=== PATIENT | female | born 1945 | race African-American/Black ===

== ENCOUNTER → 2019-01-06 | Day surgery (SDC) | payer MEDICARE ==
[2019-01-03 11:33] LABS: BASOPHILS # (AUTO) 0.1 (0.0-0.1); EOSINOPHILS # (AUTO) 0.4 (0.0-0.4); EOSINOPHILS % 6.9 % (0.0-6.0); HEMATOCRIT 38.2 % (34.2-44.1); HEMOGLOBIN 11.8 g/dL (12.0-16.0); LYMPHOCYTES # (AUTO) 1.8 (1.0-3.2); MEAN CORPUSCULAR HEMOGLOBIN 25.6 pg (28-32); MEAN CORPUSCULAR HGB CONC 30.9 g/dL (31-35); MEAN CORPUSCULAR VOLUME 82.9 fL (81-99); MONOCYTES # (AUTO) 0.6 (0.2-0.8); MONOCYTES % 10.7 % (4.4-11.3); NEUTROPHILS % 50.2 % (38.7-80.0); PLATELET COUNT 217 x10e3/uL (140-360); RED BLOOD COUNT 4.61 x10e6/uL (3.6-5.1); RED CELL DISTRIBUTION WIDTH 14.9 % (11.7-14.4)
[2019-01-03 11:57] LABS: ALBUMIN 3.5 g/dL (3.5-5.0); ALBUMIN/GLOBULIN RATIO 0.8 (0.8-2.0); ANION GAP 12.4 mmol/L (8-16); CALCIUM 9.8 mg/dL (8.4-10.2); CREATININE, SERUM 1.4 mg/dL (0.57-1.11); POTASSIUM 4.4 mmol/L (3.5-5.1)
--- NOTE | 2019-01-03 12:20 | Diagnostic Imaging Report ---
EXAMINATION: CHEST 2 VIEWS INDICATION: Pre-op left heart catheterization. COMPARISON: None FINDINGS: TUBES and LINES: None. LUNGS: Lungs are moderately inflated. There is no evidence of pneumonia or pulmonary edema. PLEURA: No pleural effusion or pneumothorax. HEART AND MEDIASTINUM: The cardiomediastinal silhouette is unremarkable. There are atherosclerotic calcifications within the aorta. BONES AND SOFT TISSUES: No acute osseous abnormality. 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 UPPER ABDOMEN: No free air under the diaphragm. IMPRESSION: No acute radiographic abnormality. Signed by: Dr. Shelly Lopez MD on 01/03/2019 12:17 PM
[~2019-01-06] VITALS: Ht 165.1 cm; Wt 78.5 kg
[2019-01-06] VITALS (10 sets, daily range): BP systolic 112–175; BP diastolic 47–77
[~2019-01-06] MED LIST: AMLODIPINE BESY10 MG PO; ATORVASTATIN CA10 MG PO; EZETIMIBE 10 MG PO; FENTANYL CITRATE/PF 100MCG/2 ML INJ ONE; HEPARIN SOD/SOD CHLORIDE 2,000 ML ONE; HYDRALAZINE HCL25 MG PO; HYDROCHLOROTHIA25 MG PO; IOPAMIDOL 370 MG/ML 200 ML INFUS..BTL INJ ONE; LIDOCAINE HCL 2% LOCAL 20 ML VIAL ONE; LOSARTAN POTAS100 MG PO; METOPROLOL ER PO; METOPROLOL TARTRATE INJ 1 MG/ML VIAL ONE; MIDAZOLAM HCL 2 MG/2 ML VIAL ONE; NITROGLYCERIN 400 MCG/SPRAY 4.9 GM BTL ONE; SODIUM CHLORIDE 0.9% 1000ML 1,000 ML ONE
--- OUTSIDE RECORDS SUMMARY | 2019-01-06 08:17 | XMS REPORT | Summary of Care ---
Author Organization Unknown Address Unknown Phone Unavailable Encounter HQ Encntr_alias(FIN) [id number] Date(s): 04/09/14 - 04/09/14 [facility] Outpatient Imaging [address] Discharge Disposition: Home Physician Attending: Jonas Guillaume MD Reason for Visit 723.4 - BRACHIAL NEURIT Problem List Condition Effective Dates Status Health Status Informant Back pain(Confirmed) Active Hypertension(Confirm Active ed) Right arm Active cyst(Confirmed) Stroke(Confirmed) Active Allergies, Adverse Reactions, Alerts Substance Reaction Severity Status NKDA Active Medications No data available for this section Medications Administered During Your Visit No data available for this section Immunizations No data available for this section
--- OUTSIDE RECORDS SUMMARY | 2019-01-06 08:17 | XMS REPORT | Summary of Care ---
Author Organization Unknown Address Unknown Phone Unavailable Encounter HQ Encntr_alias(FIN) [id number] Date(s): 07/23/14 - 07/23/14 [facility] Outpatient Imaging [address] Discharge Disposition: Home Physician Attending: Jonas Guillaume MD Reason for Visit 796.4 - ABN CLINICAL FI Problem List Condition Effective Dates Status Health Status Informant Back pain(Confirmed) Active Hypertension(Confirm Active ed) Right arm Active cyst(Confirmed) Stroke(Confirmed) Active Allergies, Adverse Reactions, Alerts Substance Reaction Severity Status NKDA Active Medications No data available for this section Medications Administered During Your Visit No data available for this section Immunizations No data available for this section
--- OUTSIDE RECORDS SUMMARY | 2019-01-06 08:17 | XMS REPORT | Continuity of Care Document ---
Author Author [facility] Interface Address Unknown Phone Unavailable Problems Problem Status Onset Date Classification Date Reported Comments Source J44.9 Active 01/02/2019 [facility] [id number] (PRIMARY) HYPERTENSION, J4 Active 12/22/2018 [facility] BREAST PAIN Active 10/09/2016 [facility] M85.80 - OTH DISRD OF BONE DENSITY AND Active 11/18/2015 [facility] UNK Active 12/05/2012 [facility] 782.2 Active 12/05/2012 [facility] 729.99 - SOFT TISSUE DIS Active 09/26/2012 [facility] [place] Final: Other Screening Mammogram 03/30/2015 [facility] Right arm cyst Active Problem 07/25/2014 [facility] Back pain Active Problem 01/04/2019 [facility] Hypertension Active Problem 01/04/2019 [facility] Stroke Active Problem 01/04/2019 [facility] MASTODYNIA Active [facility] CHRONIC OBSTRUCTIVE PULMONARY DISEASE, U Active [facility] ABNORMAL ELECTROCARDIOGRAM [ECG] [EKG] Active [facility] ESSENTIAL (PRIMARY) HYPERTENSION Active [facility] Medications Medication Details Route Status Patient Instructions Ordering Provider Order Date Source Allergies, Adverse Reactions, Alerts Substance Category Reaction Severity Reaction type Status Date Reported Comments Source penicillins Assertion Drug allergy Active [facility] Immunizations Immunization Date Given Site Status Last Updated Comments Source Results Order Name Results Value Reference Range Date Interpretation Comments Source Chest 2 views DX Chest 2 views DX Chest 2 views DX 01/02/2019 9:41 CDT Ordering Physician: MELISSA Wilson CLINICAL HISTORY: - J44.9 Chronic obstructive pulmonary disease, unspecified; TECHNIQUE: PA and lateral upright views of the chest were obtained. COMPARISON: October 2016 FINDINGS: Lungs are clear. No pleural effusion or pneumothorax is present. Cardiomediastinal silhouette there is tracer normal heart size, but with aortic arch calcified plaque and a mildly tortuous thoracic aorta. Bones are normal. Bones demonstrate mild mid thoracic spine kyphosis with chronic minimal anterior compression wedge deformity of the midthoracic vertebral body. IMPRESSION: No acute abnormality of the chest. SL: [id number] 01/02/2019 - - Read by: Sia Cary MD Dictated Date/time: 01/02/19 11:33 Electronically Signed by: Sia Cary MD 01/02/19 11:35 FINAL REPORT [facility] Cardiac SPECT multi studies [place] Cardiac SPECT multi studies [place] [id number] nuclear gated myocardial perfusion scan performed as per protocol at nuclear medicine lab at [facility]. Lexiscan injected 0.4 mg intravenously. Cardiolite injected 28.3 mCi for resting protocol and 10's millicuries for stress protocol. Impression. Abnormal study. Inferior and lateral ischemia noted. Inferior and lateral hypokinesia noted. Left ventricular ejection fraction is 55%. 12/26/2018 - - Read by: Dean Ye MD Dictated Date/time: 12/29/18 11:30 Electronically Signed by: Dean Ye MD 12/29/18 11:34 FINAL REPORT [facility] Breast Mammo Scrn LENNY w mundo incl CAD DE Breast Mammo Scrn LENNY w mundo incl CAD MA BILATERAL DIGITAL SCREENING MAMMOGRAM 3D/2D WITH CAD: 01/24/2018 CLINICAL: /Routine. Current study was evaluated with a Computer Aided Detection (CAD) system. COMPARISON:Comparison is made to exams dated: 11/27/2016 mammogram, 03/27/2015 mammogram, 04/23/2014 mammogram, 12/13/2012 mammogram, and 03/31/2011 mammogram - [facility]. TECHNIQUE: Digital Breast Tomosynthesis was performed and utilized for Interpretation. Current study was also evaluated with a Computer Aided Detection (CAD) system. FINDINGS: There are scattered fibroglandular densities in both breasts. There are benign scattered calcifications in the left breast. No significant masses, calcifications, or other findings are seen in either breast. There has been no significant interval change. IMPRESSION: BENIGN RECOMMENDATION:There is no mammographic evidence of malignancy. A 1 year screening mammogram is recommended.(01/25/2019) This exam was interpreted at [id number] for Yann 15. Professional services are provided by the [facility]. Gloria Sifuentes M.D., ms/penpauline:01/24/2018 10:12:57 Backfiller(s): Kait Finch [facility] [place] letter sent: BI-RADS 1/2 Mammogram BI-RADS: 2 Benign 01/24/2018 - - Read by: Gloria Sifuentes MD Dictated Date/time: 01/24/18 10:12 Electronically Signed by: Gloria Sifuentes MD 01/24/18 10:12 FINAL REPORT [facility] Bone Density DXA [employer] MA Bone Density DXA [employer] MA BONE DENSITY ASSESSMENT: 01/24/2018 CLINICAL DATA: Post menopausal and clinical risk for osteoporosis. Z78.0 asymptomatic postmenopausal state. /Z78.0 Asymptomatic Menopausal State FINDINGS: Bone density evaluation was performed 01/24/2018 on the right femur neck using a Hologic unit. The BMD average for the exam is 0.700 g/cm2. The T-score is - 1.30 and the Z-score is -0.20. This matches the World Health Organization's criteria for osteopenia and places the patient at a medium risk for fracture. An additional bone density evaluation was performed 01/24/2018 on the left femur neck using a Hologic unit. The BMD average for the exam is 0.663 g/cm2. The T- score is -1.70 and the Z-score is -0.50. This matches the World Health Organization's criteria for osteopenia and places the patient at a medium risk for fracture. An additional bone density evaluation was performed 01/24/2018 on the right total femur area using a Hologic unit. The BMD average for the exam is 0.656 g/cm2. The T-score is -2.30 and the Z-score is -1.10. This matches the World Health Organization's criteria for osteopenia and places the patient at a medium risk for fracture. An additional bone density evaluation was performed 01/24/2018 on the left total femur area using a Hologic unit. The BMD average for the exam is 0.685 g/cm2. The T-score is -2.10 and the Z-score is -1.00. This matches the World Health Organization's criteria for osteopenia and places the patient at a medium risk for fracture. An additional bone density evaluation was performed 01/24/2018 on the AP L1-L4 region of spine using a Hologic unit. The BMD average for the exam is 0.864 g/cm2. The T-score is -1.70. This matches the World Health Organization's criteria for osteopenia and places the patient at a medium risk for fracture. FRAX 10 year probability of major osteoporotic fracture is 5% and hip fracture is 1%. IMPRESSION: OSTEOPENIA Patient is at medium risk for fracture. Patient consult w/primary care provider is recommended. This exam was interpreted at [id number] for KRYSTAL Doe. Gloria Sifuentes M.D. ms/penrad:01/24/2018 15:09:00 Backfiller(s): Kait Finch [facility] 01/24/2018 - - Read by: Gloria Sifuentes MD Dictated Date/time: 01/24/18 15:09 Electronically Signed by: Gloria Sifuentes MD 01/24/18 15:09 FINAL REPORT [facility] Breast Mammo Scrn LENNY incl CAD MA Breast Mammo Scrn LENNY incl CAD MA - BREAST MAMMO SCRN LENNY INCL CAD MA BILATERAL DIGITAL SCREENING MAMMOGRAM WITH CAD: 11/27/2016 CLINICAL: Routine. Current study was evaluated with a Computer Aided Detection (CAD) system. Comparison is made to exams dated: 03/27/2015 mammogram, 04/23/2014 mammogram, 12/13/2012 mammogram and 03/31/2011 mammogram - [facility]. There are scattered fibroglandular densities in both breasts. There are benign scattered calcifications in the left breast. No significant masses, calcifications, or other findings are seen in either breast. There has been no significant interval change. IMPRESSION: BENIGN There is no mammographic evidence of malignancy. A 1 year screening mammogram is recommended. Professional services are provided by the [facility]. Oleg Alston M.D. cm/penrad:11/27/2016 10:08:44 Backfiller: Marybel Solomon [facility] This exam was dictated and interpreted by [id number] for KRYSTAL Doe. letter sent: Normal exam Mammogram BI-RADS: 2 Benign 11/27/2016 - - Read by: Gurpreet Camilo MD Dictated Date/time: 11/27/16 10:08 Electronically Signed by: Gurpreet Camilo MD 11/27/16 10:08 [facility] [place] Chest 2 views DX Chest 2 views DX Patient Name: MAGNO DOHERTY : 1945; Age: 71 years y/o Female MR: [id number] * CHEST, 2 views HISTORY: breast pain (left), COMPARISON: None TECHNIQUE: Frontal and lateral radiographs of the chest were obtained. FINDINGS: The lungs are clear. There are no pleural effusions. Arch size is at the upper limits of normal. There is no evidence of failure. 2 mild degenerative changes in the thoracic spine. It is noted there is an anterior bowing deformity involving the sternum. The regional skeleton is otherwise unremarkable. IMPRESSION: 1. No active disease. SL: [id number] 10/09/2016 - - Read by: Mt Montgomery MD Dictated Date/time: 10/09/16 15:21 Electronically Signed by: Mt Montgomery MD 10/09/16 15:23 FINAL REPORT [facility] Digital Mammo Screening Lenny MA Digital Mammo Screening Lenny MA - DIGITAL MAMMO SCREENING LENNY MA BILATERAL DIGITAL SCREENING MAMMOGRAM WITH CAD: 03/27/2015 CLINICAL: Routine. Current study was evaluated with a Computer Aided Detection (CAD) system. Comparison is made to exams dated: 04/23/2014 mammogram, 12/13/2012 mammogram, 03/31/2011 mammogram - [facility] and 07/12/2007 mammogram - [facility] Mammography. There are scattered fibroglandular densities in both breasts. There are benign vascular calcifications and a calcification in both breasts. No significant masses, calcifications, or other findings are seen in either breast. There has been no significant interval change. IMPRESSION: BENIGN There is no mammographic evidence of malignancy. A 1 year screening mammogram is recommended. Di holder/penrad:03/27/2015 09:09:19 Backfiller: Bernarda MCGUIRE(R)(M), [facility] This exam was dictated and interpreted by [id number] for [facility]. letter sent: Normal exam Mammogram BI-RADS: 2 Benign 03/27/2015 - - Read by: Di Owen MD Dictated Date/time: 03/27/15 09:09 Electronically Signed by: iD Owen MD 03/27/15 09:09 FINAL REPORT [facility] [place] Thyroid US Thyroid US REASON FOR EXAM: Thyroid lesions. COMPARISON: Cervical spine MRI 07/09/2014. FINDINGS: Ultrasound of the thyroid gland was performed. Static images are submitted. There is no demonstrable parathyroid adenoma. There are nodules in the right thyroid lobe: 1.5 x 2.2 x 1.4 cm superiorly; 1.2 x 0.78 x 0.94 cm in the mid to superior right thyroid lobe; 1.2 x 1.8 x 1.2 cm with cystic changes in the mid right thyroid lobe; 1 x 1.5 x 1.2 cm with cystic changes in the mid to inferior right thyroid lobe; 1 x 0.96 x 1.1 cm in the mid to inferior right thyroid lobe. The right thyroid lobe measures 5.6 x 2.1 x 2.1 cm (length x AP x width). There is a 0.74 x 0.61 x 0.59 cm nodule with cystic changes in the thyroid isthmus. The maximal AP dimension of the thyroid isthmus is 1.4 cm. There are adjacent nodules versus a solitary nodule in the mid to inferior left thyroid lobe with maximal dimensions of 3.2 x 1.2 x 2.7 cm. The left thyroid lobe measures 5.2 x 2.2 x 2.3 cm (length x AP x width). IMPRESSION: Multinodular thyroid gland. SL: 15 07/23/2014 - - Read by: James Bosch MD Dictated Date/time: 07/23/14 10:02 Electronically Signed by: James Bosch MD 07/23/14 10:14 FINAL REPORT [facility] Spine cervical wo contrast MRI Spine cervical wo contrast MRI REASON FOR EXAM: 723.1 Cervicalgia. COMPARISON: Cervical spine series 04/09/2014. TECHNIQUE: Unenhanced axial and sagittal MR images of the cervical spine were performed. FINDINGS: There is mild patient motion. There is slight curvature of the cervical spine convex to the left. There is approximately 2 mm anterolisthesis of C7 on T1. There are anterior marginal osteophytes from C3 through C6. Marrow edema in the right facets at C3-C4 is likely secondary to facet arthropathy. There is mild Modic type I degenerative changes of the vertebral endplates at C3-C4. There is disc desiccation at all levels of the cervical spine. There is anterior disc bulging from C3-C4 through T1-T2. There are thyroid lesions the largest measuring approximately 2.3 cm in the right thyroid lobe, incompletely assessed on this examination. The cervical spinal cord demonstrates normal signal intensity without a demonstrable lesion or syrinx. Craniocervical junction: No significant abnormality. C2-C3: Posterior central and bilateral paracentral disc bulge/protrusion measuring a maximal AP dimension of approximately 2 mm. Facet arthropathy. No significant foraminal narrowing or spinal stenosis. C3-C4: Posterior disc space narrowing. Broad-based posterior disc bulge/protrusion measuring a maximal AP dimension of approximately 3 mm. Uncal vertebral joint hypertrophy. Facet arthropathy. Severe right foraminal narrowing. Moderate to severe left foraminal narrowing. Moderate spinal stenosis. C4-C5: Posterior disc space narrowing. Left posterior paracentral disc bulging measuring a maximal AP dimension of approximately 1 to 2 mm. Uncal vertebral joint hypertrophy. Facet arthropathy. Moderate right foraminal narrowing. Severe left foraminal narrowing. Mild spinal stenosis. C5-C6: Posterior disc space narrowing. Broad-based posterior disc bulge/protrusion more pronounced on the left measuring a maximal AP dimension of approximately 2 to 3 mm. Uncal vertebral joint hypertrophy. Facet arthropathy. Mild right foraminal narrowing. Mild to moderate left foraminal narrowing most pronounced medially. Mild spinal stenosis. C6-C7: Posterior disc space narrowing. Broad-based posterior disc bulge/protrusion measuring a maximal AP dimension of approximately 3 mm. Uncal vertebral joint hypertrophy. Facet arthropathy. Mild to moderate right foraminal narrowing most pronounced medially. Severe left foraminal narrowing. Mild spinal stenosis. C7-T1: Broad-based posterior disc bulge/protrusion measuring a maximal AP dimension of approximately 2 to 3 mm. Facet arthropathy. Mild bilateral foraminal narrowing. No significant spinal stenosis. IMPRESSION: 1. Slight curvature of the cervical spine convex to the left. 2. Grade 1 anterolisthesis of C7 on T1. 3. [place] disc desiccation and facet arthropathy. 4. Spondylosis of the cervical spine with multilevel posterior disc space narrowing, posterior disc bulging/protrusions, foraminal narrowing and spinal stenosis as described above. 5. Thyroid lesions. Further evaluation may be obtained with a thyroid ultrasound. SL: 15 07/09/2014 - - Read by: James Bosch MD Dictated Date/time: 07/10/14 07:49 Electronically Signed by: James Bosch MD 07/10/14 08:28 [facility] [place] Digital Mammo Screen Lenny MA w mundo Digital Mammo Screen Lenny MA w mundo - DIGITAL MAMMO SCREEN LENNY MA W MUNDO BILATERAL DIGITAL SCREENING MAMMOGRAM 3D/2D WITH CAD: 04/23/2014 CLINICAL: Screening. 2D digital mammographic images and 3D digital tomosynthesis images were obtained in the CC and MLO projections. Current study was evaluated with a Computer Aided Detection (CAD) system. Comparison is made to exams dated: 12/13/2012 mammogram, 03/31/2011 mammogram - [facility] and 07/12/2007 mammogram - [facility]. There are scattered fibroglandular densities in both breasts. Technologist indicates the exam is limited secondary to the patient's body habitus. Optimal positioning was not allowed. Best images obtained were submitted. There are benign vascular calcifications in both breasts. No significant masses, calcifications, or other findings are seen in either breast. There has been no significant interval change. IMPRESSION: BENIGN There is no mammographic evidence of malignancy. A screening mammogram in one year is recommended. Di holder/penrad:04/23/2014 08:32:11 Backfiller: Bernarda GATICA)(Paola), [facility] This exam was dictated and interpreted by [id number] for [facility]. letter sent: Normal exam Mammogram BI-RADS: 2 Benign 04/23/2014 - - Read by: Di Owen MD Dictated Date/time: 04/23/14 08:32 Electronically Signed by: Di Owen MD 04/23/14 08:32 [facility] [place] Spine cervical minimum of 4 views Spine cervical minimum of 4 views Examination: Cervical spine, 6 views History: CERVICAL RADICULOPATHY Comparison: None. Findings: Multiple views of the cervical spine show visualization through the C7 vertebral body on the lateral swimmer's view. No acute vertebral body height loss or subluxation is seen. Mild multilevel degenerative disc disease of the cervical spine is seen with mild disc height loss and prominent anterior marginal osteophytes. Mild to moderate facet arthrosis throughout the cervical spine is seen. There is moderate left neuroforaminal narrowing at C3-C4 and C5- C6. Mild to moderate right neuroforaminal narrowing at C3-C4 is seen. The odontoid process is intact. The prevertebral soft tissues are unremarkable. IMPRESSION: Mild to moderate multilevel degenerative changes of the cervical spine. SL: 12 04/09/2014 - - Read by: Jamie Baez MD Dictated Date/time: 04/09/14 10:07 Electronically Signed by: Jamie Baez MD 04/09/14 10:08 FINAL REPORT [facility] Vital Signs Vital Sign Value Date Comments Source BMI Calculated 28.35 12/26/2018 [facility] Weight 77.273 12/26/2018 [facility] Height 165.1 cm 12/26/2018 [facility] Encounters Location Location Details Encounter Type Encounter Number Reason For Visit Attending Provider ADM Date DC Date Status Source OD [id number] 729.99 - SOFT TISSUE DIS [facility] 10/04/2012 Active [facility] [place] [facility] [id number] [facility] 04/09/2014 04/10/2014 [facility] [place] [facility] [id number] [facility] 04/23/2014 04/24/2014 [facility] [place] [facility] [id number] [facility] 07/09/2014 07/10/2014 [facility] [place] [facility] [id number] [facility] 07/23/2014 07/24/2014 [facility] [place] [facility] [id number] [facility] 03/27/2015 03/28/[address] [facility] Outpatient [id number] [facility] 10/09/2016 10/10/2016 [facility] Outpatient [facility] [place] [facility] [id number] [facility] 11/27/2016 11/28/2016 [facility] [place] [facility] [id number] Raymundo Medina 01/24/2018 01/25/[address] [facility] Outpatient [id number] Dean Ye 12/26/2018 12/27/2018 [facility] Outpatient [id number] Raza Cha 01/02/2019 01/03/2019 [facility] DS [id number] 782.2 CALDERON BRIGGS Active [facility] Procedures Procedure Code Date Perfomer Comments Source Endarterectomy [id number] [facility] Operation [id number] [facility] Partial hysterectomy [id number] [facility] Endarterectomy [id number] [facility] Operation [id number] [facility] Partial hysterectomy [id number] [facility]
--- OUTSIDE RECORDS SUMMARY | 2019-01-06 08:17 | XMS REPORT | Summary of Care ---
Author Author [facility] Organization [facility] Address Unknown Phone Unavailable Encounter HQ Ladarius_naeem(FIN) [id number] Date(s): 12/26/18 - 12/26/18 [facility] [address] [place] [address]- Discharge Disposition: Home or Self Care Attending Physician: Dean Ye MD Referring Physician: Dean Ye MD Vital Signs Most recent to 1 oldest [Reference Range]: Height 165.1 cm (12/26/18 10:21 AM) Weight 77.273 kg (12/26/18 10:21 AM) Body Mass Index 28.35 m2 (12/26/18 10:21 AM) Problem List Condition Effective Dates Status Health Status Informant Back pain(Confirmed) Active Hypertension(Confirm Active ed) Stroke(Confirmed) Active Allergies, Adverse Reactions, Alerts Substance Reaction Severity Status penicillins Active Medications No data available for this section Results No data available for this section Immunizations No data available for this section Procedures Procedure Date Related Diagnosis Body Site Status Endarterectomy Completed Operation Completed Partial hysterectomy Completed Social History No data available for this section Assessment and Plan No data available for this section
--- OUTSIDE RECORDS SUMMARY | 2019-01-06 08:17 | XMS REPORT | Summary of Care ---
Author Organization Unknown Address Unknown Phone Unavailable Encounter HQ Encntr_alias(FIN) [id number] Date(s): 07/09/14 - 07/09/14 [facility] Outpatient Imaging [address] Discharge Disposition: Home Physician Attending: Jonas Guillaume MD Reason for Visit 723.1 - CERVICALGIA Problem List Condition Effective Dates Status Health Status Informant Back pain(Confirmed) Active Hypertension(Confirm Active ed) Right arm Active cyst(Confirmed) Stroke(Confirmed) Active Allergies, Adverse Reactions, Alerts Substance Reaction Severity Status NKDA Active Medications No data available for this section Medications Administered During Your Visit No data available for this section Immunizations No data available for this section
--- OUTSIDE RECORDS SUMMARY | 2019-01-06 08:17 | XMS REPORT | Summary of Care ---
Author Author [facility] Organization [facility] Address Unknown Phone Unavailable Encounter HQ Encntr_alias(FIN) [id number] Date(s): 10/09/16 - 10/09/16 [facility] [address] [place] [address]- Discharge Disposition: Home or Self Care Attending Physician: Jnoas Guillaume MD Admitting Physician: Jonas Guillaume MD Vital Signs No data available for this section Problem List Condition Effective Dates Status Health Status Informant Back pain(Confirmed) Active Hypertension(Confirm Active ed) Stroke(Confirmed) Active Allergies, Adverse Reactions, Alerts Substance Reaction Severity Status NKDA Active Medications No data available for this section Results No data available for this section Immunizations No data available for this section Procedures Procedure Date Related Diagnosis Body Site Endarterectomy Operation Partial hysterectomy Social History No data available for this section Assessment and Plan No data available for this section
--- OUTSIDE RECORDS SUMMARY | 2019-01-06 08:17 | XMS REPORT | Summary of Care ---
Author Author [facility] Outpatient Imaging [facility] Outpatient Imaging [place] Address Unknown Phone Unavailable Encounter HQ Encntr_alias(FIN) [id number] Date(s): 01/24/18 - 01/24/18 [facility] Outpatient Imaging [place] [address] [address], [address] [place] [address]- [phone] Discharge Disposition: Home or Self Care Attending Physician: Raymundo Medina MD Vital Signs No data available for [...]
--- OUTSIDE RECORDS SUMMARY | 2019-01-06 08:17 | XMS REPORT | Summary of Care ---
Author Author [facility] Outpatient Imaging [facility] Outpatient Imaging [place] Address Unknown Phone Unavailable Encounter HQ Encntr_alias(FIN) [id number] Date(s): 11/27/16 - 11/27/16 [facility] Outpatient Imaging [place] [address] [facility], [address] [place] [address]- [phone] Discharge Disposition: Home or Self Care Attending Physician: Jonas Guillaume MD Vital Signs No [...]
--- OUTSIDE RECORDS SUMMARY | 2019-01-06 08:17 | XMS REPORT | Summary of Care ---
Author Organization Unknown Address Unknown Phone Unavailable Encounter HQ Encntr_alias(FIN) [id number] Date(s): 04/23/14 - 04/23/14 [facility] Outpatient Imaging [address] Discharge Disposition: Home Physician Attending: Jonas Guillaume MD Reason for Visit V76.12 - SCREEN MAMMOGRA Problem List Condition Effective Dates Status Health Status Informant Back pain(Confirmed) Active Hypertension(Confirm Active ed) Right arm Active cyst(Confirmed) Stroke(Confirmed) Active Allergies, Adverse Reactions, Alerts Substance Reaction Severity Status NKDA Active Medications No data available for this section Medications Administered During Your Visit No data available for this section Immunizations No data available for this section
--- OUTSIDE RECORDS SUMMARY | 2019-01-06 08:17 | XMS REPORT | Summary of Care ---
Author Author [facility] Outpatient Imaging [facility] Outpatient Imaging [place] Address Unknown Phone Unavailable Encounter HQ Encntr_alias(FIN) [id number] Date(s): 03/27/15 - 03/27/15 [facility] Outpatient Imaging [place] [id number] [place], [place] [address] [phone] Final: Other Screening Mammogram Discharge Disposition: Home Attending Physician: Jonas Guillaume MD Vital Signs [...]
--- OUTSIDE RECORDS SUMMARY | 2019-01-06 08:17 | XMS REPORT | Summary of Care ---
Author Author [facility] Organization [facility] Address Unknown Phone Unavailable Encounter HQ Encntr_alias(FIN) [id number] Date(s): 01/02/19 - 01/02/19 [facility] [address] [place] [address]- [phone] Discharge Disposition: Home or Self Care Attending Physician: Raza Cha Admitting Physician: Raza Cha Vital Signs No data available for this [...]
--- OUTSIDE RECORDS SUMMARY | 2019-01-06 08:18 | XMS REPORT | Encounter Summary ---
Author Organization Unknown Address [address] [place] [address] Phone [phone] Care Team Providers Care Grounding Engineer Name Role Phone Dr. Terry Titus 3 [phone] Terry Titus Jr, MD 3 [phone] Papo Smith MD 130 [phone] Reason for Visit hyperlipidemia; hypertension Instructions 1. Benign hypertensive renal disease amlodipine 10 mg tablet hydralazine 25 mg tablet hydrochlorothiazide 25 mg tablet losartan 100 mg tablet urinalysis, dipstick CMP, serum or plasma TSH, serum or plasma CBC w/ auto diff 2. Chronic kidney disease stage 3 3. Hyperlipidemia atorvastatin 20 mg tablet lipid panel, serum 4. Impaired fasting glycaemia HbA1c (hemoglobin A1c), blood 5. Screening for malignant neoplasm of colon fecal occult blood, stool 6. Screening for malignant neoplasm of breast MAMMO, screening, digital, bilateral - PLEASE FAX RESULTS TO [phone]. 7. Postmenopausal state bone density referral - PLEASE FAX RESULTS TO [phone]. 8. Blood in urine culture, urine Discussion Note If you do not hear from us in 1 week after the labs are done ,pl call us for results f/u in 1 month with bp reading Patient educational handouts: No information available. Plan of Care Reminders Provider Appointments Est Patient 02/02/2019 9:00AM Raymundo Medina MD Lab Urinalysis, Dipstick 11/03/2018 [facility] [place] CMP, Serum or Plasma 11/03/2018 [facility] TSH, Serum or Plasma 11/03/2018 [facility] Lipid Panel, Serum 11/03/2018 [facility] HbA1C (Hemoglobin a1C), Blood 11/03/2018 [facility] Fecal Occult Blood, Stool 11/03/2018 [facility] CBC W/ Auto Diff 11/03/2018 [facility] Culture, Urine 11/03/2018 [facility] Referral Bone Density Referral 11/03/2018 [facility] Imaging - [facility] Procedures None recorded. Surgeries None recorded. Imaging MAMMO, Screening, Digital, Bilateral 11/03/2018 [facility] Outpatient Imaging [place] Medications Name Start Date amlodipine 10 mg tablet Take 1 tablet every day by oral route for 90 days. atorvastatin 20 mg tablet Take 1 tablet every day by oral route for 90 days. FOR CHOLESTEROL fluticasone 50 mcg/actuation nasal spray,suspension [place] 2 sprays every day by intranasal route for 90 days. hydralazine 25 mg tablet Take 1 tablet 3 times a day by oral route for 90 days. hydrochlorothiazide 25 mg tablet Take 1 tablet every day by oral route for 90 days. losartan 100 mg tablet Take 1 tablet every day by oral route for 90 days. Vitamin D3 1,000 unit capsule Take 1 capsule every day by oral route. Medications Administered None recorded. Vitals Height Weight BMI Blood Pressure 5 ft 5 in 176 lbs 29.3 kg/m2 (1) 152/90 mm[Hg] (2) 165/80 mm[Hg] Lab Results None recorded. Allergies Code Code System Name Reaction Severity Status Onset 1191 RxNorm Aspirin Other Moderate Active 08129 RxNorm Lisinopril Active Penicillins Active 94892 RxNorm Pravastatin Active Sulfa (Sulfonamide Antibiotics) Active NKDA Problems Name Status Onset Date Source Hyperlipidemia Active 07/19/2017 Benign Hypertensive Renal Disease Active 07/19/2017 Chronic Kidney Disease Stage 3 Active 07/19/2017 Tenosynovitis of Wrist Active 12/01/2017 Vitamin D Deficiency Active 04/14/2018 History of Cerebrovascular Accident Active 04/14/2018 Procedures Date Name Performed by Partial Hysterectomy Information not available Knee Arthroscopy/surgery Information not available Low Back Disk Surgery Information not available Cholecystectomy (Gall Bladder Removal) Information not available 11/03/2018 MAMMO, Screening, Digital, Bilateral [facility] Outpatient Imaging [place] [address] [facility] [address] [place] [address] (Work Place) Vaccine List Vaccine Type influenza, high dose seasonal 07/19/20170.5 mL 05/30/20180.5 mL influenza, injectable, quadrivalent 05/29/2016 pneumococcal conjugate PCV 13 12/01/20170.5 mL Social History Smoking Status Never Smoker Past Encounters 11/03/2018 Benign Hypertensive Renal Disease; Chronic Kidney Disease Stage 3; Hyperlipidemia; Impaired Fasting Glycaemia; Screening for Malignant Neoplasm of Colon; Screening for Malignant Neoplasm of Breast; Postmenopausal State; Blood in Urine Raymundo Medina MD: [id number] [facility], [address], [place] [address], Ph. History of Present Illness Hypertension Reported By: Patient Notes: No chest pain , no shortness of breath, no palpitations ,no dizziness , no diaphoresis , no weakness or numbness in arms or legs , no visual loss . Hyperlipidemia Reported By: Patient Notes: No chest pain , no shortness of breath, no palpitations ,no dizziness , no diaphoresis , no weakness or numbness in arms or legs , no visual loss . no muscle ache s, no muscle weakness Note:Here for 3 mth check up , NEEDS refills , No chest pain , no shortness of breath, no palpitations ,no dizziness , no diaphoresis , no weakness or numbness in arms or legs , no visual loss .Last mamogram - 2018 - n/ pt . 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 Review of Systems:ROS as noted in the HPI Review of Systems None recorded. Physical Exam General Adult Exam (Female) Reported By: Patient Constitutional: General Appearance: well-developed; BMI - 29.3 ( 8 lb wt gain in 3.5 mths). Level of Distress: NAD. Ambulation: ambulating normally Psychiatric: Insight: good judgement. Mental Status: active and alert, normal mood, normal affect. Orientation: to time, to place, to person Head: Head: normocephalic, atraumatic Eyes: Lids and Conjunctivae: non-injected, no discharge, no pallor. Pupils: PERRLA. Corneas: grossly intact. EOM: EOMI. Lens: clear. Sclerae: non-icteric ENMT: Ears: no lesions on external ear, EACs clear, TMs clear. Hearing: no hearing loss. Nose: no lesions on external nose, nares patent, no septal deviation, nasal passages clear, no sinus tenderness, no nasal discharge. Lips, Teeth, and Gums: no mouth or lip ulcers, no bleeding gums, normal dentition. Oropharynx: moist mucous membranes, no erythema, no exudates, tonsils not enlarged Neck: Neck: supple, trachea midline, no masses, FROM. Lymph Nodes: no cervical LAD, no supraclavicular LAD, no axillary LAD. Thyroid: no enlargement, non- tender, no nodules Lungs: Respiratory effort: no dyspnea. Auscultation: breath sounds normal, good air movement, CTA except as noted, no wheezing, no rales/crackles, no rhonchi Cardiovascular: Heart Auscultation: RRR, normal S1, normal S2, no murmurs, no rubs, no gallops Abdomen: Bowel Sounds: normal. Inspection and Palpation: soft, non-distended, no tenderness, no guarding, no rebound tenderness, no masses, no CVA tenderness. Liver: non-tender, no hepatomegaly Musculoskeletal:: Motor Strength and Tone: normal motor strength, normal tone; PEGION CHESTED. Joints, Bones, and Muscles: normal movement of all extremities, no bony abnormalities, no contractures, no malalignment, no tenderness. Extremities: no cyanosis, no varicosities, edema Neurologic: Gait and Station: normal gait, normal station. Cranial Nerves: grossly intact. Sensation: grossly intact Skin: Inspection and palpation: no rash, no lesions, no abnormal nevi, good turgor, no jaundice. Nails: normal Back: Thoracolumbar Appearance: normal curvature
--- OUTSIDE RECORDS SUMMARY | 2019-01-06 08:18 | XMS REPORT ---
Author Author [facility] Address Unknown Phone Unavailable Care Team Providers Care Pressing Department Supervisor Name Role Phone DYAN JEROME Unavailable Unavailable Problems This patient has no known problems. Allergies, Adverse Reactions, Alerts This patient has no known allergies or adverse reactions. Medications This patient has no known medications. Encounters Start Date/Time End Date/Time Encounter Type Admission Type Attending Clinicians Care Facility Care Department Encounter ID 2019-01-02 09:28:00 2019-01-02 09:28:00 Outpatient [facility] [id number] 2018-12-26 09:26:00 2018-12-26 09:26:00 Outpatient [facility] [id number] Results Test Description Test Time Test Comments Text Results Atomic Results Result Comments CHEST 2 VIEWS 2019-01-03 12:14:00 [place] [id number] Patient Name: MAGNO DOHERTY MR #: [id number] : 1945 Age/Sex: 73/F Req #: [id number] Adm Physician: Ordered by: DYAN JEROME MD Report #: [id number] Location: [facility] Room/Bed: Procedure: [id number] DX/CHEST 2 VIEWS Exam Date: 01/03/19 Exam Time: 1130 REPORT STATUS: Signed EXAMINATION: CHEST 2 VIEWS INDICATION: Pre-op left heart catheterization. COMPARISON: None FINDINGS: TUBES and LINES: None. LUNGS: Lungs are moderately inflated. There is no evidence of pneumonia or pulmonary edema. PLEURA: No pleural effusion or pneumothorax. HEART AND MEDIASTINUM: The cardiomediastinal silhouette is unremarkable. There are atherosclerotic calcifications within the aorta. BONES AND SOFT TISSUES: No acute osseous abnormality. 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 UPPER ABDOMEN: No free air under the diaphragm. IMPRESSION: No acute radiographic abnormality. Signed by: Dr. Teresa Jacobs MD on 01/03/2019 12:17 PM Dictated By: TERESA JACOBS MD [id number] Transcribed By: ROMA on 01/03/19 1217 COPY TO: DYAN JEROME MD
--- OUTSIDE RECORDS SUMMARY | 2019-01-06 08:18 | XMS REPORT | Encounter Summary ---
Author Organization Unknown Address [address] [place] [address] Phone [phone] Care Team Providers Care Busboy Name Role Phone Dr. Terry Titus 3 [phone] Terry Titus Jr, MD 3 [phone] Papo Smith MD 130 [phone] Reason for Visit hyperlipidemia; hypertension Instructions 1. [...] digital, bilateral - PLEASE FAX RESULTS TO [phone]. 7. Postmenopausal state bone density referral - PLEASE FAX RESULTS TO [phone]. Discussion Note If you do not hear from us in 1 week after the labs are done ,pl call us for results f/u in 1 month with bp reading Patient educational handouts: No information available. Plan of Care Reminders Provider Appointments Est Patient 02/02/2019 9:00AM Raymundo Medina MD Lab Urinalysis, Dipstick 11/03/2018 [facility] [place] CMP, Serum or Plasma 11/03/2018 [facility] TSH, Serum or Plasma 11/03/2018 [facility] Lipid Panel, Serum 11/03/2018 [facility] HbA1C (Hemoglobin a1C), Blood 11/03/2018 [facility] Fecal Occult Blood, Stool 11/03/2018 [facility] CBC W/ Auto Diff 11/03/2018 [facility] Referral Bone Density Referral 11/03/2018 [facility] Procedures None recorded. Surgeries None recorded. Imaging MAMMO, Screening, Digital, Bilateral 11/03/2018 [facility] Medications Name Start Date amlodipine 10 mg tablet Take 1 tablet every day by oral route for 90 days. atorvastatin 20 mg tablet Take 1 tablet every day by oral route for 90 days. FOR CHOLESTEROL fluticasone 50 mcg/actuation nasal spray,suspension [place] 2 sprays every day by intranasal route [...] Onset 1191 RxNorm Aspirin Other Moderate Active 08267 RxNorm Lisinopril Active Penicillins Active 46039 RxNorm Pravastatin Active Sulfa (Sulfonamide Antibiotics) Active [...] not available 11/03/2018 MAMMO, Screening, Digital, Bilateral [facility] Outpatient Imaging [place] [address] [facility] [address] [place] [address] (Work Place) Vaccine List Vaccine Type influenza, high dose seasonal 07/19/20170.5 mL 05/30/20180.5 mL influenza, injectable, quadrivalent 05/29/2016 pneumococcal conjugate PCV 13 12/01/20170.5 mL Social History Smoking Status Never Smoker Past Encounters 11/03/2018 Benign Hypertensive Renal Disease; Chronic Kidney Disease Stage 3; Hyperlipidemia; Impaired Fasting Glycaemia; Screening for Malignant Neoplasm of Colon; Screening for Malignant Neoplasm of Breast; Postmenopausal State Raymundo Medina MD: [address] [facility], [address], [place] [address], Ph. 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 Review of Systems:ROS as noted in [...]
--- OUTSIDE RECORDS SUMMARY | 2019-01-06 08:18 | XMS REPORT | Encounter Summary ---
Author Organization Unknown Address [address] [place] [id number] Phone [phone] Care Team Providers Care Senior Analysis Specialist Name Role Phone Dr. Terry Titus 3 [phone] Terry Titus Jr, MD 3 [phone] Papo Smith MD 130 [phone] Reason for Visit hypertension; Left neck pain; headaches Instructions 1. Benign hypertensive renal disease cardiology referral - PLEASE CALL PATIENT AND SCHEDULE HER AN APPOINTMENT. PLEASE FAX NOTES TO [phone]. metoprolol succinate ER 50 mg tablet,extended release 24 hr 2. Chronic kidney disease stage 3 3. Hyperlipidemia high cholesterol: care instructions 4. Vitamin D deficiency 5. Mild protein-calorie malnutrition (weight for age 75-89% of standard) Discussion Note Reviewed all labs with pt. D/w pt treatment plan, meds, how they work & side effects. Answered all questions to pt's satisfaction. f/u in 1 mth s/p cardiology appt Plan of Care Reminders Provider Appointments Est Patient 02/02/2019 9:00AM Raymundo Medina MD Lab None recorded. Referral Cardiology Referral 11/22/2018 Dean Ye MD Procedures None recorded. Surgeries None recorded. Imaging None recorded. Medications Name Start Date amlodipine 10 mg tablet Take 1 tablet every day by oral route for 90 days. atorvastatin 20 mg tablet Take 1 tablet every day by oral route for 90 days. fluticasone propionate 50 mcg/actuation nasal spray,suspension Benedict 2 sprays every day by intranasal route for 90 days. hydralazine 25 mg tablet Take 1 tablet 3 times a day by oral route for 90 days. hydrochlorothiazide 25 mg tablet Take 1 tablet every day by oral route for 90 days. losartan 100 mg tablet Take 1 tablet every day by oral route for 90 days. metoprolol succinate ER 50 mg tablet,extended release 24 hr Take 1 tablet every day by oral route for 30 days. Vitamin D3 1,000 unit capsule Take 1 capsule every day by oral route. Medications Administered None recorded. Vitals Height Weight BMI Blood Pressure 5 ft 5 in 174 lbs 29 kg/m2 (1) 186/100 mm[Hg] (2) 172/94 mm[Hg] Lab Results Date Name Specimen Result Interpretation Description Value Range Status Address 11/03/2018 CMP, Serum or Plasma Alt 17 U/L 0-55 U/L Final [facility] Laboratory: [address] Ast 20 U/L 5-34 U/L Final [facility]: [address] High Bun 24.7 mg/dL 9.8-20.1 mg/dL Final [facility]: [address] Alk Phos 121 unit/L 40-150 unit/L Final [facility]: [address] High Glucose 107 mg/dL 70-99 mg/dL Final [facility]: [address] Low Albumin 3.4 g/dL 3.5-5.0 g/dL Final [facility]: [address] Creatinine 1.05 mg/dL 0.57-1.11 mg/dL Final [facility]: [address] ABNORMAL eGFR Non- 51 mL/min/1.73m2 Final [facility]: [address] Total Bilirubin 0.6 mg/dL 0.2-1.2 mg/dL Final [facility]: [address] eGFR - >60 mL/min/1.73m2 Final [facility]: [address] Sodium 137 mEq/L 136-145 mEq/L Final [facility]: [address] Potassium 4.1 mEq/L 3.5-5.1 mEq/L Final [facility]: [address] Chloride 103 mmol/L 98-107 mmol/L Final [facility]: [address] Total Protein 7.1 g/dL 6.4-8.3 g/dL Final [facility]: [address] Calcium 9.4 mg/dL 8.4-10.2 mg/dL Final [facility]: [address] [facility] Co2 28.2 mmol/L 23.0-31.0 mmol/L Final [facility]: [address] Anion Gap 6 calc Final [facility]: [address] [facility] 11/03/2018 Lipid Panel, Serum Hdl 56 mg/dL 40-60 mg/dL Final [facility]: [address] [place] [address], [place] Triglyceride 57 mg/dL 0-149 mg/dL Final [facility]: [address] VLDL Calc. 11 mg/dL Final [facility]: [address] cholesterol/HDL Ratio 5.3 mg/dL Final [facility]: [address] High non-HDL Cholesterol Calc. 239 mg/dL 0-160 mg/dL Final [facility]: [address] High Cholesterol 295 mg/dL 0-199 mg/dL Final [facility]: [address] High LDL Calc. 228 mg/dL 0-130 mg/dL Final [facility]: [address] 11/03/2018 TSH, Serum or Plasma Tsh 0.857 uIU/mL 0.350-4.940 uIU/mL Final [facility]: [address] 11/03/2018 HbA1C (Hemoglobin a1C), Blood A1C W/eag 5.5 % 1.0-5.7 % Final [facility]: [address] Average Blood Glucose 111 mg/dL Final [facility]: [address] [place] [address] 11/03/2018 CBC W/ Auto Diff Wbc 4.66 x10*3/L 3.98-10.04 x10*3/L Final [facility]: [address] Rbc 4.66 10*12/L 3.93-5.22 10*12/L Final [facility]: [address] Hemoglobin 12.20 g/dL 11.20-15.70 g/dL Final [facility]: [address]ter [place] Hematocrit 37.7 % 34.1-44.9 % Final [facility]: [address] [facility] Mcv 80.9 fL 80.0-100.0 fL Final [facility]: [address] [facility] Mch 26.2 pg 25.6-32.2 pg Final [facility]: [address] [facility] Mchc 32.4 g/dL 32.2-35.5 g/dL Final [facility]: [address] [facility] RDW-SD 42.2 fL 36.4-46.3 fL Final [facility]: [address] [facility] Platelet Count 195.0 k/uL 182.0-369.0 k/uL Final [facility]: [address] [facility] Mpv 12.8 fL 7.5-11.5 fL Final [facility]: [address] [facility] Neut% 51.3 % 34.0-71.1 % Final [facility]: [address] [facility] Lymph% 26.6 % 19.3-51.7 % Final [facility]: [address] [facility] Mon% 13.1 % 4.7-12.5 % Final [facility]: [address] [place] [address] High Eos% 7.5 % 0.7-5.8 % Final [facility]: [address] [facility] Baso% 1.5 % 0.1-1.2 % Final [facility]: [address] [facility] Neut# 2.4 x10*3/L 1.6-6.1 x10*3/L Final [facility]: [address] [facility] Lymph# 1.2 x10*3/L 1.2-3.7 x10*3/L Final [facility]: [address] [facility] Mon# 0.6 x10*3/L 0.2-0.9 x10*3/L Final [facility]: [address] [place] [address], [place] Eos# 0.35 x10*3/L 0.04-0.36 x10*3/L Final [facility]: [address] Painter, [place] Baso# 0.07 x10*3/L 0.01-0.08 x10*3/L Final [facility]: [address] [place] [address], [place] 11/03/2018 Culture, Urine Culture, Urine, Routine see note Final [facility]: [address] [place] [address], [place] 11/03/2018 Urinalysis, Dipstick Color Color yellow [facility] ([facility]) Hobby: [address], [place] Color Appearance clear [facility] ([facility]) Hobby: [address] [place] Color Glucose negative [facility] ([facility]) Hobby: [address] [place] Color Bilirubin negative [facility] ([facility]) [address]: [address] [place] Color Ketones negative [facility] ([facility]) Hobby: [address] [place] Color Specific [place] 1.020 [facility] ([facility]) [address]: [address] [place] Color Blood moderate [facility] ([facility]) Hobby: [address] [place] Color PH 6.0 [facility] ([facility]) [address]: [address] [place] Color Protein 100 [facility] ([facility]) Hobby: [address] [place] Color Urobilinogen 0.2 [facility] ([facility]) Hobby: [address], [place] Color Nitrites negative [facility] ([facility]) Hobby: [address] [place] Color Leukocytes negative [facility] ([facility]) Hobby: [address], [place] Allergies Code Code System Name Reaction Severity Status Onset 1191 RxNorm Aspirin Other Moderate Active 63399 RxNorm Lisinopril Active Penicillins Active 63728 RxNorm Pravastatin Active Sulfa (Sulfonamide Antibiotics) Active NKDA Problems Name Status Onset Date Source Hyperlipidemia Active 07/19/2017 Benign Hypertensive Renal Disease Active 07/19/2017 Chronic Kidney Disease Stage 3 Active 07/19/2017 Tenosynovitis of Wrist Active 12/01/2017 Vitamin D Deficiency Active 04/14/2018 History of Cerebrovascular Accident Active 04/14/2018 Mild Protein-calorie Malnutrition (Weight for Age 75-89% of Standard) Active 11/04/2018 Procedures Date Name Performed by Partial Hysterectomy Information not available Knee Arthroscopy/surgery Information not available Low Back Disk Surgery Information not available Cholecystectomy (Gall Bladder Removal) Information not available 11/03/2018 MAMMO, Screening, Digital, Bilateral [facility] [place] [address] [facility] [address] [place] [address] (Work [address]) Vaccine List Vaccine Type influenza, high dose seasonal 07/19/20170.5 mL 05/30/20180.5 mL influenza, injectable, quadrivalent 05/29/2016 pneumococcal conjugate PCV 13 12/01/20170.5 mL Social History Smoking Status Never Smoker Past Encounters 11/22/2018 Benign Hypertensive Renal Disease; Chronic Kidney Disease Stage 3; Hyperlipidemia; Vitamin D Deficiency; Mild Protein-calorie Malnutrition (Weight for Age 75-89% of Standard) Raymundo Medina MD: [address], [place] [address], Ph. 11/03/2018 Benign Hypertensive Renal Disease; Chronic Kidney Disease Stage 3; Hyperlipidemia; Impaired Fasting Glycaemia; Screening for Malignant Neoplasm of Colon; Screening for Malignant Neoplasm of Breast; Postmenopausal State; Blood in Urine Raymundo Medina MD: [address], [place] [address], Ph. History of Present Illness Hypertension Reported By: Patient Notes: No chest pain , no shortness of breath, no palpitations ,no dizziness , no diaphoresis , no weakness or numbness in arms or legs , no visual loss . Note:Takes all bp meds in am only & still high . No chest pain , no shortness of breath, no palpitations ,no dizziness , no diaphoresis , no weakness or numbness in arms or legs , no visual loss ., NO WEAKNESS OR numbness in arms or legs, Lt side of heck hurts <div>H/o stroke in 1979's from uncontrolled htn .</div> Review of Systems None recorded. Physical Exam General Adult Exam (Female) Reported By: Patient Constitutional: General Appearance: well-developed; pt sitting all covered up in her sweater & needed a paper towel to keep her warm & covered more. Level of Distress: NAD. Ambulation: ambulating normally [...] Neck: Neck: supple, trachea midline, no masses, FROM; no discomfort to palpation on neck , neck muscles & upper back. Lymph Nodes: no cervical LAD, no supraclavicular LAD, no axillary LAD. Thyroid: no enlargement, non-tender, no nodules Lungs: Respiratory effort: no dyspnea. [...] Strength and Tone: normal motor strength, normal tone. Joints, Bones, and Muscles: normal movement of all extremities, no bony abnormalities, no contractures, no malalignment, no tenderness. Extremities: no cyanosis, no edema, no varicosities Neurologic: Gait and Station: normal gait, normal station. Cranial Nerves: grossly intact. Sensation: grossly intact Skin: Inspection and palpation: no rash, no lesions, no abnormal nevi, good turgor, no jaundice. Nails: normal Back: Thoracolumbar Appearance: normal curvature
--- OUTSIDE RECORDS SUMMARY | 2019-01-06 08:18 | XMS REPORT ---
Author Organization Unknown Address [address] [place] [address] Phone [phone] Care Team Providers Care Wharf Operator Name Role Phone CRICKET ANDRES MD 130 [phone] Allergies Code Code System Name Reaction Severity Status Onset 24515 RxNorm Lisinopril Active Penicillins Active 06171 RxNorm Pravastatin Active Sulfa (Sulfonamide Antibiotics) Active Medications Name Status Start Date Stop Date Adult Low Dose Aspirin 81 mg tablet,delayed release Take 1 tablet every day by oral route for 90 days. Active Not available amlodipine 10 mg tablet Active Not available atorvastatin 10 mg tablet Active Not available clonidine HCl 0.2 mg tablet Active Not available hydrochlorothiazide 25 mg tablet Active Not available losartan 100 mg tablet Active Not available methylprednisolone 4 mg tablets in a dose pack Completed 12/01/2017 Vitamin D2 50,000 unit capsule Take 1 capsule twice a week by oral route for 90 days. Active Not available Zostavax (PF) 19,400 unit/0.65 mL subcutaneous suspension Active Not available Problems Name Status Onset Date Source Hyperlipidemia Active 07/19/2017 Benign Hypertensive Renal Disease Active 07/19/2017 Chronic Kidney Disease Stage 3 Active 07/19/2017 Tenosynovitis of Wrist Active 12/01/2017 Procedures Date Name Performed by Partial Hysterectomy Information not available Knee Arthroscopy/surgery Notes: RIGHT Information not available Low Back Disk Surgery Information not available Cholecystectomy Information not available 11/03/2017 MAMMO, Screening, Digital, Bilateral [facility] [address] [id number] (Work Place) 11/03/2017 Bone Density [facility] [address] [address] (Work Place) Lab Results Date Name Specimen Result Interpretation Description Value Range Status Address 11/03/2017 CBC W/ Auto Diff Wbc 4.26 x10*3/L 3.98-10.04 x10*3/L Final [facility] [address] [facility] Rbc 4.25 10*12/L 3.93-5.22 10*12/L Final [facility]: [address] [facility] Hemoglobin 11.30 g/dL 11.20-15.70 g/dL Final [facility]: [address] [facility] Hematocrit 35.5 % 34.1-44.9 % Final [facility]: [address] [facility] Mcv 83.5 fL 80.0-100.0 fL Final [facility]: [address] [facility] Mch 26.6 pg 25.6-32.2 pg Final [facility]: [address] [facility] Low Mchc 31.8 g/dL 32.2-35.5 g/dL Final [facility]: [address] [facility] RDW-SD 44.3 fL 36.4-46.3 fL Final [facility]: [address] [facility] Platelet Count 191.0 k/uL 182.0-369.0 k/uL Final [facility]: [address] [facility] High Mpv 11.7 fL 7.5-11.5 fL Final [facility]: [address] [facility] Neut% 45.3 % 34.0-71.1 % Final [facility]: [address] [facility] Lymph% 36.4 % 19.3-51.7 % Final [facility]: [address] [facility] Mon% 10.8 % 4.7-12.5 % Final [facility] Laboratory: [address] [place] [address] High Eos% 6.6 % 0.7-5.8 % Final [facility]: [address] [facility] Baso% 0.9 % 0.1-1.2 % Final [facility]: [address] [facility] Neut# 1.9 x10*3/L 1.6-6.1 x10*3/L Final [facility] Laboratory: [address] [place] [address] Lymph# 1.6 x10*3/L 1.2-3.7 x10*3/L Final [facility] Laboratory: [address] Pianter, [place] Mon# 0.5 x10*3/L 0.2-0.9 x10*3/L Final [facility] Laboratory: [address] Shepherd [facility] [place] Eos# 0.28 x10*3/L 0.04-0.36 x10*3/L Final [facility] Laboratory: [address] Painter, [place] Baso# 0.04 x10*3/L 0.01-0.08 x10*3/L Final [facility]: [address] [facility] 11/03/2017 CMP, Serum or Plasma Alt 21 U/L 0-55 U/L Final [facility] Laboratory: [address] José [address] Ast 23 U/L 5-34 U/L Final [facility] Laboratory: [address] José [address] High Bun 25.0 mg/dL 9.8-20.1 mg/dL Final [facility] Laboratory: [address] José [address] Alk Phos 99 unit/L 40-150 unit/L Final [facility] Laboratory: [address] José [address] Glucose 99 mg/dL 70-99 mg/dL Final [facility] Laboratory: [address] Shepherd [address] [place] [address] Low Albumin 3.3 g/dL 3.5-5.0 g/dL Final [facility] Laboratory: [address] Shepherd [address] [place] [address] High Creatinine 1.23 mg/dL 0.57-1.11 mg/dL Final [facility] Laboratory: [address] Shepherd [address] [place] [address] Low eGFR Non- 43 mL/min/1.73m2 >60 mL/min/1.73m2 Final [facility] Laboratory: [address] José [address] Total Bilirubin 0.7 mg/dL 0.2-1.2 mg/dL Final [facility] Laboratory: [address] José [address] Low eGFR - 52 mL/min/1.73m2 >60 mL/min/1.73m2 Final [facility] Laboratory: [address] José [address] Sodium 137 mEq/L 136-145 mEq/L Final [facility] Laboratory: [address] Potassium 4.6 mEq/L 3.5-5.1 mEq/L Final [facility] Laboratory: [address] José [address] Chloride 101 mmol/L 98-107 mmol/L Final [facility] Laboratory: [address] Total Protein 6.6 g/dL 6.4-8.3 g/dL Final [facility] Laboratory: [address] dw[address] [place] [address], [place] Calcium 9.1 mg/dL 8.4-10.2 mg/dL Final [facility] Laboratory: [address] dw[address] [place] [address], [place] Co2 27.0 mmol/L 23.0-31.0 mmol/L Final [facility] Laboratory: [address] Anion Gap 9 calc Final [facility] Laboratory: [address] [place] [address], [place] 11/03/2017 Lipid Panel, Serum Hdl 50 mg/dL 40-60 mg/dL Final [facility] Laboratory: [address] dwain [address] Triglyceride 73 mg/dL 0-149 mg/dL Final [facility] Laboratory: [address] VLDL Calc. 15 mg/dL Final [facility] Laboratory: [address] cholesterol/HDL Ratio 5.0 mg/dL Final [facility] Laboratory: [address] dwain [address] High non-HDL Cholesterol Calc. 201 mg/dL 0-160 mg/dL Final [facility] Laboratory: [address] dwain [address] High Cholesterol 251 mg/dL 0-199 mg/dL Final [facility] Laboratory: [address] High LDL Calc. 186 mg/dL 0-130 mg/dL Final [facility] Laboratory: [address] dwain [place] [address], [place] 11/03/2017 Vitamin D, 25-Hydroxy, Total, Serum Low Vitamin D 25OH 19.7 NG/mL 30.0-96.0 NG/mL Final [facility] Laboratory: [address] José [place] [address], [place] 11/03/2017 HbA1C (Hemoglobin a1C), Blood A1C W/eag 5.3 % 1.0-5.7 % Final [facility] Laboratory: [address] José [address] Average Blood Glucose 105 mg/dL Final [facility] Laboratory: [address] Painter [place] 11/03/2017 Urinalysis, Dipstick Color Color yellow [facility]: [address] [address], [place] Color Appearance clear [facility]: [address] [address], [place] Color Glucose negative [facility]: [address] [place] [address], [place] Color Bilirubin negative [facility]: [address] [place] [address], [place] Color Ketones negative [facility]: [address] [place] [address], [place] Color Specific [place] 1.025 [facility]: [address] [place] [address], [place] Color Blood negative [facility]: [address] [place] [address], [place] Color PH 5.5 [facility]: [address] [place] [address], [place] Color Protein 30 [facility]: [address] [place] [address], [place] Color Urobilinogen 0.2 [facility]: [address] [place] [address], [place] Color Nitrites negative [facility]: [address] [place] [address], [place] Color Leukocytes negative [facility]: [address] 02/19/2017 CBC W/ Auto Diff Wbc 3.24 x10*3/L 2.60-11.20 x10*3/L Final [facility] Laboratory: [address] Rbc 4.08 10*12/L 3.93-5.87 10*12/L Final [facility] Laboratory: [address] Hemoglobin 10.90 g/dL 10.70-15.70 g/dL Final [facility] Laboratory: [address] Hematocrit 34.2 % 33.2-46.8 % Final [facility] Laboratory: [address] José [address] Mcv 83.8 fL 77.8-103.4 fL Final [facility] Laboratory: [address] Mch 26.7 pg 24.8-35.0 pg Final [facility] Laboratory: [address] Mchc 31.9 g/dL 31.5-35.9 g/dL Final [facility] Laboratory: [address] [place] RDW-SD 44.6 fL 35.8-50.4 fL Final [facility] Laboratory: [address] [place] Platelet Count 175.0 k/uL 126.7-416.1 k/uL Final [facility] Laboratory: [address] [place] Mpv 11.8 fL 8.3-13.5 fL Final [facility] Laboratory: [address] [place] Neut% 51.6 % 39.5-76.9 % Final [facility] Laboratory: [address] [place] Lymph% 29.6 % 12.6-45.8 % Final [facility] Laboratory: [address] [place] Mon% 11.7 % 3.7-12.9 % Final [facility] Laboratory: [address] [place] Eos% 6.2 % 0.7-6.4 % Final [facility] Laboratory: [address] [place] Baso% 0.9 % 0.1-1.5 % Final [facility] Laboratory: [address] [place] Neut# 1.7 x10*3/L 0.6-7.6 x10*3/L Final [facility] Laboratory: [address] [place] Lymph# 1.0 x10*3/L 0.7-3.3 x10*3/L Final [facility] Laboratory: [address] [place] Mon# 0.4 x10*3/L 0.2-1.0 x10*3/L Final [facility] Laboratory: [address] [place] Eos# 0.20 x10*3/L 0.04-0.44 x10*3/L Final [facility] Laboratory: [address] [place] Baso# 0.03 x10*3/L 0.01-0.08 x10*3/L Final [facility] Laboratory: [address] [place] 02/19/2017 CMP, Serum or Plasma Alt 13 U/L 0-55 U/L Final [facility] Laboratory: [address] Painter, [place] Ast 19 U/L 5-34 U/L Final [facility] Laboratory: [address] Painter, [place] Bun 16.2 mg/dL 9.8-20.1 mg/dL Final [facility] Laboratory: [address] Painter, [place] Alk Phos 91 unit/L 40-150 unit/L Final [facility] Laboratory: [address] Painter, [place] Glucose 98 mg/dL 70-99 mg/dL Final [facility] Laboratory: [address] Painter, [place] Low Albumin 3.3 g/dL 3.5-5.0 g/dL Final [facility]: [address] [facility] Creatinine 1.08 mg/dL 0.57-1.11 mg/dL Final [facility]: [address] [facility] Low eGFR Non- 50 mL/min/1.73m2 >60 mL/min/1.73m2 Final [facility] Laboratory: [address] Total Bilirubin 0.7 mg/dL 0.2-1.2 mg/dL Final [facility] Laboratory: [address] eGFR - >60 mL/min/1.73m2 >60 mL/min/1.73m2 Final [facility] Laboratory: [address] [facility] Sodium 137 mEq/L 136-145 mEq/L Final [facility] Laboratory: [address] José [address] Potassium 4.3 mEq/L 3.5-5.1 mEq/L Final [facility] Laboratory: [address] Chloride 105 mmol/L 98-107 mmol/L Final [facility] Laboratory: [address] Total Protein 6.4 g/dL 6.4-8.3 g/dL Final [facility] Laboratory: [address] José [address], [place] Calcium 8.8 mg/dL 8.4-10.2 mg/dL Final [facility]: [address] [facility] Low Co2 21.2 mmol/L 23.0-31.0 mmol/L Final [facility] Laboratory: [address] Anion Gap 11 calc Final [facility] Laboratory: [address] dw[address] [place] [address], [place] 02/19/2017 TSH, Serum or Plasma Tsh 1.023 uIU/mL 0.350-4.940 uIU/mL Final [facility] Laboratory: [address] dw[address] [place] [address], [place] Past Encounters 12/01/2017 Benign Hypertensive Renal Disease; Immunization; Tenosynovitis of Wrist; Vitamin D Deficiency; Mixed Hyperlipidemia; Chronic Kidney Disease Stage 3 Raymundo Medina MD: [address], [facility] [address] [address], Ph. 11/03/2017 Pruritus of Skin; Benign Hypertensive Renal Disease; Hyperlipidemia; Screening Mammography; Postmenopausal State; Impaired Fasting Glycaemia; Shoulder Joint Pain; Tenosynovitis of Wrist; History of Cerebrovascular Accident Raymundo Medina MD: [address], [facility] [address] [address], Ph. 07/20/2017 Benign Hypertensive Renal Disease; Chronic Kidney Disease Stage 3; Hyperlipidemia Jonas Guillaume MD: [address], [facility], [place] [address], Ph. 07/19/2017 Advance Directive Discussed with Patient; Depression Screening; Adult Health Examination; Body Mass Index 25-29 - Overweight; Benign Hypertensive Renal Disease; Chronic Kidney Disease Stage 3; Hyperlipidemia; Immunization Jonas Guillaume MD: [address], [facility] [address], [place] [address], Ph. Social History Smoking Status Never Smoker Vaccine List Vaccine Type influenza, high dose seasonal 07/19/20170.5 mL influenza, injectable, quadrivalent 05/29/2016 pneumococcal conjugate PCV 13 12/01/20170.5 mL Plan of Care Patient Instructions It was good to see you in the office today for your Medicare Annual Wellness Visit. You have been provided some information on healthy nutrition, including a diet rich in fruits and vegetables, minimizing simple carbohydrates, salt, and saturated fats. I want to encourage regular cardiovascular exercise such as walking at least 30 minutes daily, 5 times per week. Please remember to schedule any preventive health measures that we talked about today. You have also been provided education on fall prevention and community- based lifestyle interventions to help reduce health risks and promote healthy living in your [place] [employer] folder. Screening Recommendations 1. Vaccines Pneumococcal: discussed today and information sent with patient in their [facility] health folder Influenza: discussed today and information sent with patient in their [facility] health folder Shingles: discussed today and information sent with patient in their [facility] health folder Tetanus: discussed today and information sent with patient in their [facility] health folder 2. Mammography Screening: discussed today and information sent with patient in their [facility] health folder 3. Colorectal cancer Screening Colonoscopy: discussed today and information sent with patient in their [facility] health folder Fecal Occult Blood: discussed today and information sent with patient in their [facility] health folder 4. Bone Mass Measurement: discussed today 5. Pap test / Pelvic Exam Screening: discussed today 6. Eye Exam Screening: discussed today 7. Cholesterol Screening: discussed today 8. Diabetes Screening: discussed today Reminders Provider Appointments None recorded. Lab None recorded. Referral None recorded. Procedures None recorded. Surgeries None recorded. Imaging None recorded. Vitals 12/01/2017 08:15AM Est Patient Height Weight BMI Blood Pressure 5 ft 5 in 170 lbs 28.3 kg/m2 142/82 mm[Hg] 11/03/2017 09:30AM MOLD COOLER/EST CPX Height Weight BMI Blood Pressure 5 ft 5 in 172 lbs 28.6 kg/m2 112/70 mm[Hg] 07/20/2017 12:15PM Est Patient Height Weight BMI Blood Pressure 5 ft 5 in 163 lbs 27.1 kg/m2 110/70 mm[Hg] 07/19/2017 09:15AM AWV Height Weight BMI Blood Pressure 5 ft 5 in 164 lbs 27.3 kg/m2 240/80 mm[Hg]
--- OUTSIDE RECORDS SUMMARY | 2019-01-06 08:18 | XMS REPORT | Encounter Summary ---
Author Organization Unknown Address [address] [place] [address] Phone [phone] Care Team Providers Care Unit Manager Name Role Phone Dr. Terry Titus 3 [phone] Terry Titus Jr, MD 3 [phone] Papo Smith MD 130 [phone] Reason for Visit hyperlipidemia; hypertension Instructions 1. [...] digital, bilateral - PLEASE FAX RESULTS TO [phone]. 7. Postmenopausal state bone density referral - PLEASE FAX RESULTS TO [phone]. Discussion Note If you do not hear from us in 1 week after the labs are done ,pl call us for results f/u in 1 month with bp reading Patient educational handouts: No information available. Plan of Care Reminders Provider Appointments Est Patient 02/02/2019 9:00AM Raymundo Medina MD Lab Urinalysis, Dipstick 11/03/2018 [facility] [place] CMP, Serum or Plasma 11/03/2018 [facility] TSH, Serum or Plasma 11/03/2018 [facility] Lipid Panel, Serum 11/03/2018 [facility] HbA1C (Hemoglobin a1C), Blood 11/03/2018 [facility] Fecal Occult Blood, Stool 11/03/2018 [facility] CBC W/ Auto Diff 11/03/2018 [facility] Referral Bone Density Referral 11/03/2018 [facility] Procedures None recorded. Surgeries None recorded. Imaging MAMMO, Screening, Digital, Bilateral 11/03/2018 [facility] Medications Name Start Date amlodipine 10 mg tablet Take 1 tablet every day by oral route for 90 days. atorvastatin 20 mg tablet Take 1 tablet every day by oral route for 90 days. FOR CHOLESTEROL fluticasone 50 mcg/actuation nasal spray,suspension [place] Log 2 sprays every day by intranasal route [...] ft 5 in 176 lbs 29.3 kg/m2 152/90 mm[Hg] Lab Results None recorded. Allergies Code Code System Name Reaction Severity Status Onset 1191 RxNorm Aspirin Other Moderate Active 48190 RxNorm Lisinopril Active Penicillins Active 56340 RxNorm Pravastatin Active Sulfa (Sulfonamide Antibiotics) Active [...] not available 11/03/2018 MAMMO, Screening, Digital, Bilateral [facility] [place] [address] [facility] [address] [place] [address] (Work Place) Vaccine List Vaccine [...] of Breast; Postmenopausal State Raymundo Medina MD: [address] [facility], [address], [place] [address], Ph. 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 Review of Systems:ROS as noted in [...]
--- NOTE | 2019-01-06 12:42 | History and Physical ---
HISTORY OF PRESENT ILLNESS: The patient admitted at this time for an elective left heart catheterization, coronary angiogram, possible angioplasty, and stent placement. The patient complains of chest pain and she has history of systemic hypertension, hyperlipidemia, and COPD. The patient had chest pain on and off. The patient underwent a nuclear stress test. Nuclear stress test is found to be abnormal. MEDICATIONS: Included: 1. Norvasc 10 mg once a day. 2. Atorvastatin 20 mg once a day. 3. Hydralazine 25 mg twice a day. 4. Losartan potassium 100 mg once a day. 5. Metoprolol succinate 100 mg once a day. 6. Zetia 10 mg once a day. 7. She cannot tolerate the statins because of significant muscle cramps. The patient did not have any stroke or myocardial infarction. Main complaints are shortness of breath and chest pain. PHYSICAL EXAMINATION: CONSTITUTIONAL: She is alert and oriented. VITAL SIGNS: Blood pressure 190/80. LUNGS: Moderate COPD. ABDOMEN: Soft. NEURO: Normal. SKIN: Normal. EXTREMITIES: The patient has decreased pulses in the right dorsalis pedis and left dorsalis pedis. IMPRESSION: 1. Angina pectoris. 2. Coronary artery disease. 3. Abnormal nuclear stress test. 4. Hypertension. 5. Hyperlipidemia. 6. Positive chronic obstructive pulmonary disease. 7. Peripheral artery disease. The patient admitted for elective coronary angiogram associated studies. MD PIPO Sanchez/STEPHANIE /[id number] MTDRuthy
--- NOTE | 2019-01-06 16:00 | NUR ---
1600 iv removed site Coban dressing in place.w/o s/s infiltration. No signs of gross pain pallor,pressure bleeding or dysrhythmia.Rt groin Minyx site intact.aware of dc instructions and has copy of dc papers Escorted to car per w/c denies CP or SOB.B ack to baseline orientation.
--- NOTE | 2019-01-06 18:43 | Operative Report ---
DATE OF PROCEDURE: SURGEON: Dean Ye MD PROCEDURES: Left heart catheterization, coronary angiogram, aortic root arteriogram, and right leg arteriogram. INDICATION FOR PROCEDURE: 1. Angina pectoris. 2. Abnormal nuclear stress test, hypertension, and hyperlipidemia. This procedure was done at [facility] with informed consent under conscious sedation on the right femoral artery. Results of test as follows: Coronary angiogram: Coronary angiogram shows right coronary artery completely occluded. Retrograde filling of the right coronary artery is seen. The patient had dominant left coronary system. The patient got two ostia, LAD and circumflex separate. LAD has approximately 60% to 70% lesion noted. The patient got diffuse 40% lesion noted distally. Circumflex is very large and is very tortuous. There is 70% to 80% lesion noted in the tortuous circumflex artery after the OM artery takeoff. Also, LAD and circumflex are calcified. I did not do the left ventricular angiogram because of the renal failure. Aortic root arteriogram was performed. I could not see the right coronary artery origin at all, but retrograde filling is noted. Possibly, right coronary artery, there is a possibility it could be a nondominant artery. . The patient also underwent right iliac arteriogram selectively. The patient has right iliac artery proximally 30% to 40% lesion and the right SFA is occluded at the origin. Profunda is very large feeding the collateral to the artery below the knee. I did not do complete right leg arteriogram. At this time, the patient has lesions in circumflex and LAD. She may not be an ideal candidate for coronary intervention. I will try to get a surgical opinion and depending upon surgical opinion, we will further proceed with the treatment either medical or surgery or high-risk coronary intervention. I will discuss with family member. The patient also has renal failure. I will review the echocardiogram for the LV ejection fraction and aortic valve diameter. Dean Ye MD PVB/MODL /[id number] MTDRuthy
--- NOTE | 2019-01-07 04:30 | Discharge Summary ---
DISCHARGE DIAGNOSES: 1. Angina pectoris. 2. Significant coronary artery disease. 3. Peripheral artery disease. 4. Hypertension. 5. Hyperlipidemia. 6. Possible moderate chronic obstructive pulmonary disease. HOSPITAL COURSE: The patient brought in here for angina pectoris, abnormal nuclear stress test. The patient underwent the following angiogram. Procedures done by Dr. Ye, left heart catheterization, coronary angiogram, aortic root aortogram, right iliac arteriogram and the patient also has renal failure and LV angiogram not performed. The patient has significant disease in LAD, circumflex artery. Circumflex artery is very much tortuous. There are some calcifications noted and RCA is 100% occluded ostium. There is a good possibility the right coronary artery may be a non- dominant also. At this time, the patient needs further treatment. I will try to treat her medically at this time. We will get a surgical opinion for the cardiac surgery and may be a candidate for high risk coronary intervention , Circumflex artery has a severe lesion over 70% to 80%, LAD got approximately 60% to 70% lesion and also 40% distal LAD, which I will discuss with the patient. The patient has a renal failure also. In the meantime, we will continue medical treatment and advised low-fat diet, low-salt diet, moderate physical activity, and not a smoker at this time. MD PIPO Sanchez/STEPHANIE /[id number] MARTELL
== END | disposition home or self-care (01) ==
LOC: CATH LAB 08:15
PROVIDERS: ATTEND Internal Medicine Cardiovascular Disease
DX: I25.119 Atherosclerotic heart disease of native coronary artery with unspecified angina pectoris (principal); N19 Unspecified kidney failure; R94.39 Abnormal result of other cardiovascular function study; I10 Essential (primary) hypertension; E78.5 Hyperlipidemia, unspecified; I73.9 Peripheral vascular disease, unspecified; J44.9 Chronic obstructive pulmonary disease, unspecified; Z01.810 Encounter for preprocedural cardiovascular examination; Z01.812 Encounter for preprocedural laboratory examination; Z01.818 Encounter for other preprocedural examination
CPT/HCPCS: 36415; 71046; 75605; 75710; 80053; 85025; 93005; 93454; C1760; C1769; J2001; J2250; J7030; Q9967